=== PATIENT | female | born 1985 | race Two or more races ===

== ENCOUNTER 2017-08-29 14:33 | Emergency (ER) | payer OTHER ==
[~2017-08-29] VITALS: Ht 157.5 cm; Wt 88.5 kg
[2017-08-29 14:58] VITALS: BP 144/91
[2017-08-31 10:04] LABS: Hepatitis B Surface Antibody Positive
[2017-08-31 10:20] LABS: Hepatitis B Surface Antigen Negative (Negative)
== END 2017-08-29 15:42 | disposition home or self-care (01) ==
LOC: ER 14:38
DX: Z77.21 Contact with and (suspected) exposure to potentially hazardous body fluids (principal); Z98.890 Other specified postprocedural states
CPT/HCPCS: 36415; 86703; 86706; 86803; 87340

== ENCOUNTER → 2019-04-16 | Outpatient (CLI) | payer OTHER ==
[2019-04-18 09:25] LABS: Hepatitis B Surface Antibody Positive
[2019-04-18 11:35] LABS: Hepatitis B Surface Antigen Negative (Negative)
== END | disposition home or self-care (01) ==
LOC: LAB 11:45
PROVIDERS: ATTEND Nurse Practitioner
DX: Z77.21 Contact with and (suspected) exposure to potentially hazardous body fluids (principal)
CPT/HCPCS: 36415; 86703; 86706; 86803; 87340

== ENCOUNTER 2020-04-24 11:59 | Emergency (ER) | payer BC, OTHER ==
[~2020-04-24] VITALS: Ht 157.5 cm; Wt 95.3 kg
[2020-04-24 13:49] LABS: Albumin 3.1 g/dL (3.4-5.0); Basophils # (auto) 0 10 ^3/uL (0-0.2); Basophils % (auto) 0.5 % (0.0-2.0); Calcium 8.3 mg/dL (8.5-10.1); Eosinophils # (auto) 0 10 ^3/uL (0-0.8); Hematocrit 39.8 % (36.0-46.0); Hemoglobin 13.7 g/dL (12.2-16.2); Lymphocytes # (auto) 0.8 10 ^3/uL (0.4-5.4); Lymphocytes % (auto) 17.6 % (10.0-50.0); Mean Corpuscular Hemoglobin 31.4 pg (28.0-32.0); Mean Corpuscular Hgb Conc. 34.5 g/dL (32.0-36.0); Monocytes # (auto) 0.3 10 ^3/uL (0-1.3); Monocytes % (auto) 6.8 % (0.0-12.0); Neutrophils # (auto) 3.2 10 ^3/uL (1.6-8.6); Neutrophils % (auto) 75.1 % (37.0-80.0); Nucleated Red Blood Cells % 0.3 %; Platelet Count (auto) 156 10^3/uL (140-450); Potassium 4.3 mmol/L (3.5-5.1); Red Blood Cells 4.38 10^6/uL (4.0-5.20); Red Cell Distribution Width 13.9 % (11.8-14.3); White Blood Cell 4.3 10^3/uL (4.4-10.8)
[2020-04-24 13:52] LABS: BUN/Creatinine Ratio 9.3; Bilirubin, Total 0.4 mg/dL (0.2-1.0)
[2020-04-24 14:31] LABS: Urine Bacteria FEW /hpf (None Seen); Urine Blood 2+ /uL (Negative); Urine Mucus FEW (None Seen); Urine WBC 5 /hpf (0 - 5)
[2020-04-24] MEDS ORDERED: SODIUM CHLORIDE 0.9% 1,000 ML IV ONE (14:45)
[2020-04-24 16:12] VITALS: BP 102/53
== END 2020-04-24 16:18 | disposition home or self-care (01) ==
LOC: ER 11:59
DX: R55 Syncope and collapse (principal); E86.0 Dehydration; E46 Unspecified protein-calorie malnutrition; Z20.822 Contact with and (suspected) exposure to COVID-19
CPT/HCPCS: 36415; 70450; 71045; 80053; 81001; 85025; 87426; 93005; 96365; 99285; J7030